=== PATIENT | male | born 1960 | race African-American/Black ===

== ENCOUNTER 2018-04-28 15:44 | Emergency (ER) | payer OTHER ==
[~2018-04-28] VITALS: Ht 177.8 cm; Wt 104.3 kg
[~2018-04-28 15:44] MED LIST: ASPIRIN EC81 M1 PO; GLUCOPHAGE1000 MG PO; GLUCOTROL10 MG PO; MAGOX 400400 MG PO; NORVASC10 MG PO; NOVOLOG100 UNIT/1; PRAVASTATIN SOD20 MG PO; PRILOSEC 20 MG20 MG PO
[2018-04-28] MEDS ORDERED: NAPROSYN500 MG PO (16:50)
[2018-04-28] MEDS ORDERED: TRAMADOL 50 MG50 MG PO (16:50)
[2018-04-28 17:30] VITALS: BP 126/82
[2018-05-05] MEDS ORDERED: ZOLOFT100 MG PO (14:22)
[2018-05-05] MEDS ORDERED: PRAVACHOL20 MG PO (14:22)
[2018-05-05] MEDS ORDERED: PIOGLITAZONE30 MG PO (14:23)
[2018-05-05] MEDS ORDERED: MAGNESIUM OXID500 M1 PO (14:25)
[2018-05-05] MEDS ORDERED: HUMALOG100 UNIT/1 SUBQ (14:26)
[2018-05-05] MEDS ORDERED: LEVEMIR SUBQ (14:27)
[2018-05-05] MEDS ORDERED: GLIPIZIDE 10 MG10 MG PO (14:29)
[2018-05-05] MEDS ORDERED: UNICOMPLEX M TA1 TA1 PO (14:29)
[2018-05-05] MEDS ORDERED: PEPCID20 MG PO (14:31)
[2018-05-05] MEDS ORDERED: CLONAZEPAM 0.50.5 M1 PO (14:31)
== END 2018-04-28 17:30 | disposition home or self-care (01) ==
LOC: ER 15:44
DX: S76.112A Strain of left quadriceps muscle, fascia and tendon, initial encounter (principal); S80.12XA Contusion of left lower leg, initial encounter; Z98.890 Other specified postprocedural states; I10 Essential (primary) hypertension; E78.00 Pure hypercholesterolemia, unspecified; F32.9 Major depressive disorder, single episode, unspecified; F41.9 Anxiety disorder, unspecified; W00.1XXA Fall from stairs and steps due to ice and snow, initial encounter; Y93.89 Activity, other specified; Y92.89 Other specified places as the place of occurrence of the external cause; Y99.8 Other external cause status

== ENCOUNTER 2018-05-06 05:26 | Day surgery (SDC) | payer OTHER ==
[~2018-05-06] VITALS: Ht 175.3 cm; Wt 104.6 kg
--- NOTE | ~2018-05-06 | O ---
[facility] [place] [address] OPERATIVE REPORT Name: KYLER DUNAWAY Room #: 150-3 [facility]..#: [id number] Admission: 05/06/18 Attend Phys: Devonte Craven MD Discharge: Date of : 64 Report #: [id number] THIS REPORT FOR: //name// CC: Devonte Perez DATE OF SERVICE: 05/06/2018 SERVICE: Orthopedics. FACILITY: [facility]. SURGEON: Devonte Craven MD PAY STATION DEPARTMENT MANAGER: Hillary Vera NP INDICATION FOR PAY STATION DEPARTMENT MANAGER: Is aiding in reduction and repair. PREOPERATIVE DIAGNOSIS: Acute left quadriceps tendon rupture. POSTOPERATIVE DIAGNOSIS: Acute left quadriceps tendon rupture. PROCEDURE: Left open quadriceps tendon repair. COMPLICATIONS: None. DRAINS: None. SPECIMENS: None. ANESTHESIA: General. FINDINGS: 1. Successful repair with [place] suture tape x 2. 2. [place] flexion test secured to 70 degrees of flexion. Postoperative plan will be to begin range of motion at 3 weeks, 0-60 degrees until 6 weeks and then advance beyond 60 at that point. HISTORY: The patient is a gentleman who sustained an injury to his left knee. He presented to the clinic with evidence of an acute quadriceps tendon rupture. He was indicated for surgical treatment as he was unable to perform a straight leg raise. Risks, benefits, alternatives, and indication of surgery were discussed with him in detail. Risks include but not limited to pain, bleeding, infection, injury to nerves or blood vessels, persistent pain despite surgical intervention, failure of repair, progression of any preexisting chondral injury, stiffness, need for further surgery as well as complications related to [facility] [address] [place] [address] OPERATIVE REPORT Name: KYLER DUNAWAY Room #: 150-3 [facility] M.R.#: [id number] Admission: 05/06/18 Attend Phys: Devonte Craven MD Discharge: Date of : 64 Report #: [id number] anesthesia such as stroke, heart attack, pulmonary complications, thromboembolic disease and . Despite these risks, he wished to proceed. PROCEDURE IN DETAIL: After left lower extremity was correctly identified in preoperative holding area as the operative extremity, the patient was taken to the operating room where general anesthesia with LMA was induced without complication. He was padded appropriately. Prophylactic antibiotics were administered at appropriate time. Tourniquet was applied to the left leg. Left lower extremity was then prepped and draped in standard sterile fashion. Time-out procedure was performed. A standard anterior incision was made over the patella and the quadriceps tendon. Dissection was taken down to the quad tendon, which was torn and frayed. The degenerative tissue was debrided with a rongeur and sharply. After the debridement was completed, the superior pole of the patella was exposed. The tendon stump and residual synovium was resected. A fresh trough was made in the superior pole of bone, exposing the cancellous bone for secure repair. [facility] labral tape was then used to perform two [place] sutures with a total of 4 limbs. Three 2 mm drill holes were then drilled in the patella and the suture limbs were passed through the drill holes. The quadriceps tendon was then held and reduced securely to the patella and then these labral tape limbs were tied securely past the inferior pole of the patella over the patellar tendon. The repair was quite secure at this point with flexion and then the repair was oversewn with the residual dorsal soft tissue on the patella with 0 Vicryl suture and Jami type stitch, and then the medial and lateral retinaculum was repaired with 0 Vicryl suture in [id number] fashion. After the repair was completed, gravity flexion test was performed. The repair was secure and held to 70 degrees of flexion before it became taut and would not bend further against gravity. We will therefore set our range of motion at 60 degrees. Note that the knee joint was copiously irrigated and the knee was inspected prior to repair and there were no significant abnormalities found within the joint. The skin was then closed with 2-0 Vicryl followed by running subcuticular 3-0 Monocryl. Dermabond and an Aquacel dressing were applied to the wound. A compression stocking and PolarCare device were then applied as well. The patient was awakened from anesthesia and taken to recovery room in stable condition. There were no complications and all counts were recorded as correct. By: [id number] Devonte Craven MD /nt
[~2018-05-06 05:26] MED LIST changes: +CLONAZEPAM 0.50.5 M1 PO; +GLIPIZIDE 10 MG10 MG PO; +HUMALOG100 UNIT/1 SUBQ; +LEVEMIR SUBQ; +MAGNESIUM OXID500 M1 PO; +NAPROSYN500 MG PO; +PEPCID20 MG PO; +PIOGLITAZONE30 MG PO; +PRAVACHOL20 MG PO; +TRAMADOL 50 MG50 MG PO; +UNICOMPLEX M TA1 TA1 PO; +ZOLOFT100 MG PO
[2018-05-06 13:27] VITALS: BP 174/90
--- NOTE | 2018-05-06 16:16 | EKG ---
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 <ELECTRONICALLY SIGNED> By: Mario Marcelo MD, [facility] 05/06/18 1616 1404 1404 Mario Marcelo MD, [facility] /EPI
[2018-05-06 17:25] VITALS: BP 174/90
== END 2018-05-06 17:55 | disposition home or self-care (01) ==
LOC: OR 05:26 → TBA 05:26 → OR 10:41
DX: S76.112A Strain of left quadriceps muscle, fascia and tendon, initial encounter (principal); I10 Essential (primary) hypertension; E11.9 Type 2 diabetes mellitus without complications; E78.00 Pure hypercholesterolemia, unspecified; K21.9 Gastro-esophageal reflux disease without esophagitis; F31.9 Bipolar disorder, unspecified; F17.210 Nicotine dependence, cigarettes, uncomplicated; Z79.4 Long term (current) use of insulin; Z98.890 Other specified postprocedural states; Z79.899 Other long term (current) drug therapy; W19.XXXA Unspecified fall, initial encounter; Y93.89 Activity, other specified; Y92.89 Other specified places as the place of occurrence of the external cause; Y99.8 Other external cause status
CPT/HCPCS: 50010; 50101; 50415; 50954; 51320; 52001; 52282; 53337; 54118; 56520; 56521; 56524; 56526; 56527; 56528; 62110; 62900; 70005

== ENCOUNTER 2018-08-13 19:16 | Emergency (ER) | payer OTHER ==
[~2018-08-13] VITALS: Ht 172.7 cm; Wt 104.3 kg
[2018-08-13] MEDS ORDERED: PREDNISONE 20 M20 M1 PO (20:28)
[2018-08-13 20:50] VITALS: BP 146/90
== END 2018-08-13 20:51 | disposition home or self-care (01) ==
LOC: ER 19:16
DX: R05 Cough (principal); I10 Essential (primary) hypertension; E78.00 Pure hypercholesterolemia, unspecified; K21.9 Gastro-esophageal reflux disease without esophagitis; E11.9 Type 2 diabetes mellitus without complications; F41.9 Anxiety disorder, unspecified; F31.9 Bipolar disorder, unspecified

== ENCOUNTER → 2018-10-27 | Outpatient (CLI) | payer OTHER ==
[~2018-10-27] MED LIST changes: +PREDNISONE 20 M20 M1 PO
== END ==
LOC: RAD 16:01
DX: J45.909 Unspecified asthma, uncomplicated (principal)

== ENCOUNTER 2018-11-06 16:05 | Inpatient (IN) | payer OTHER ==
[~2018-11-06] VITALS: Ht 170.2 cm; Wt 106.0 kg
--- NOTE | ~2018-11-06 | H ---
[facility] [place] [address] HISTORY AND PHYSICAL Name: KYLER DUNAWAY Room #: 349-I [facility] IN M.R.#: [id number] Admission: 11/06/18 ������������������ Attend Phys: Bucky Perez MD Discharge: 11/10/18 ������������������ Date of : 64 Report #: [id number] THIS REPORT FOR: //name// CC: Bucky Perez DATE OF SERVICE: 11/06/2018 CHIEF COMPLAINT: Persistent wheezing for several months, now with only 27% of lung function. HISTORY OF PRESENT ILLNESS: The patient has been wheezing for several months now, and has refused to take oral prednisone because it makes his blood sugars uncontrollably high. He has been using albuterol/ipratropium by nebulizer. ADDENDUM The patient brought all of his pills to the office after being discharged yesterday to help determine if one of his medications has had/has been the trigger for his bronchospasm and eosinophilia that started in July of this year. MEDICATIONS: The medications are listed 1 by 1 with identifying characteristics, 1. Sertraline 100 mg tablets, has been taking for several years, was 2 a day while grieving his son. 2. Pravastatin 20 mg 1 daily for several years. 3. Glipizide 10 mg 1 twice daily for several years. 4. Aspirin 81 mg 1 daily for several years. 5. Lisinopril 5 mg 1 daily for several years -- this was discontinued when admitted on 11/06/2018, so as not to be confused as part of his cause for cough. 6. Clonazepam 0.5 mg tablets twice daily as needed -- current bottle only has 6 tablets left, but he indicates there is another bottle at home, has been on this since his son summer, not likely candidate. 7. Famotidine 20 mg, in the prescription bottle that belongs to his significant other, the patient indicates he has been taking one a day for several years and that it is more effective than omeprazole for reflux. 8. Pioglitazone 30 mg 1 daily for years. 9. Magnesium 400 mg -- magnesium oxide, the patient states he has been taking one daily for several years and that it helps tremendously prevent leg cramps, but he does take various different brands of magnesium and so is a possible candidate, current bottle is almost empty. 10. Bystolic 5 mg, he was given samples in May and ran out in June, so not a likely candidate to cause his eosinophilia. 11. Jardiance 25 mg was started early this year and has been out since June, not a candidate for his current eosinophilia. 12. Tresiba -- indicated when he was in the hospital that he had not been taking [facility] [address] [place] [address] HISTORY AND PHYSICAL Name: KYLER DUNAWAY Room #: 349-I [facility] IN M.R.#: [id number] Admission: 11/06/18 ������������������ Attend Phys: Bucky Perez MD Discharge: 11/10/18 ������������������ Date of : 64 Report #: [id number] it since given Ozempic in 03/2018, but he had plenty at home. 13. Humalog - has been taking this intermittently for several years. 14. Budesonide by nebulizer started in August. 15. Ipratropium/albuterol by nebulizer started in August. 16. Fluticasone nose spray started this week. 17. Losartan 100 mg started 11/10/2018. 18. Farxiga samples were started, 10/30/2018, and not a cause of his eosinophilia. CONCLUSION: The only possible trigger for his eosinophilia and cough beginning in June related to medications might be his magnesium supplement in that he has used a different brand. All of his other medications have either been used continually for several years or were not in use/he was out of before he began his cough or were started in the last week after his cough was in full swing. ��������������������������������������������� ���������������������������������������� By: ��������������������������������������������� 1837 1845 Bucky Perez MD /nt
--- NOTE | ~2018-11-06 | H ---
[facility] [place] [address] HISTORY AND PHYSICAL Name: KYLER DUNAWAY Room #: 349-I [facility] M.R.#: [id number] Admission: 11/06/18 ������������������ Attend Phys: Bucky Perez MD Discharge: ������������������ Date of : 64 Report #: [id number] THIS REPORT FOR: //name// CC: Bucky Perez DATE OF SERVICE: 11/07/2018 CHIEF COMPLAINT: Persistent asthma, greensman concerned about an allergic response. HISTORY OF PRESENT ILLNESS: The patient has asthma-like symptoms much more so than usual for several months. He actually started using a Ventolin inhaler on a rare as needed basis several years ago, about the time he started his current job. At the same time, he began to cut back and eventually quit smoking. He was accustomed to having some chronic congestion, but it became worse in mid July when a course of antibiotics did not help and he went to the [facility] on 08/13/2018. He had mild expiratory wheezes throughout on his chest examination and was discharged with a prescription for prednisone 20 mg tablets 3 tablets daily to follow up in my office in 5-7 days. He is a diabetic and noticed that his blood sugars went elvira high, over 300 constantly, so he stopped using the prednisone. He is not sure if it helped him any. He continued to have chest congestion and he attributed to seasonal allergens and pollens and came to see me a month later on 09/30/2018. He had diffuse musical wheezes on examination. He insisted that he not take oral prednisone/steroids again, so he was started on ipratropium/albuterol treatments 4 times daily and budesonide 0.5 mg twice daily, also by nebulizer. He was given Cipro for an antibiotic, told to use guaifenesin, and to return soon. He was referred to the [facility]. He next came to the office a month later on 10/30/2018, noting that his cough was not any better, and that he had been taking 2 breathing treatments a day on average. He noticed that he had missed one day of work, but that he had been required 15 hours of overtime per week. 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 He had diffuse slight wheezing on exam again. Sammy man were given to add an anticholinergic component to his breathing treatments and once again he was strongly urged to see Dr. Crawford. Dr. Crawford called on 11/06/2018, saying that patients's spirometry was decreased to only 27% of predicted, he was wheezing, and Dr. Crawford had convinced the patient to be admitted to the hospital for intravenous corticosteroid therapy and close management of his blood sugars with sliding scale insulin. Dr. Crawford was concerned that there is an allergic component involved and was concerned that his spirometry was only 27% of what it should be and that his bronchospasm should be reversed. [address] [address] HISTORY AND PHYSICAL Name: KYLER DUNAWAY Room #: 349-I [facility] IN M.R.#: [id number] Admission: 11/06/18 ������������������ Attend Phys: Bucky Perez MD Discharge: ������������������ Date of : 64 Report #: [id number] PAST MEDICAL HISTORY: Past medical history was obtained by the patient and his significant other/girlfriend. He has smoked for a long time, but over the last 4 years, has steadily stopped. The patient insists he stopped smoking a year and a half ago, and resumed briefly when his son was killed in an automobile accident in 10/2017 and since then, he has only smoked 3 cigarettes. He has been using her Ventolin inhaler for the last 4 years from time to time. Both agreed that beginning in about late July, he has had much more trouble breathing than usual and that he has not been smoking or if so very little. She attributes his breathing problems to seasonal allergies and notes that he also has nasal congestion when the trouble breathing. 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 They both note that he started needing to use Ventolin inhaler when he began this job about 4 years ago. He has type 2 diabetes that has required insulin to control and he has been noncompliant. For that reason, he was given Jardiance samples in June of this year, but indicates he may not have actually gotten the prescription filled after using up the samples. He was given Ozempic samples, but stopped using them relatively quickly because they caused erectile dysfunction. He was given Farxiga samples on 10/30/2018, but this was after his persistent bronchospasm began in mid July. He may have been on metoprolol and he was instructed to stop it in September. His other medications have been relatively unchanged, and will be reviewed below. Other past medical history is for hypertension, obesity, hyperlipidemia, elevated LPa, microhematuria. He ruptured his left quadriceps tendon and it was repaired on 05/06/2018 at [facility]. His PSA has been variable between 3.8, most recently 2.7. He has had problems with anger response at times and depression and has taken sertraline 100 mg for several years. When his son was tragically killed in an automobile accident in 10/2017, the dose was increased to 200 mg, and he has reduced it back down. He had throat surgery for reflux in 2009. He had pneumonia as a child. He had a rectal cyst removed in 2009. He has GERD. CURRENT MEDICATION LIST: (That he brought to the hospital as recorded by the nursing staff), 81 mg aspirin daily, Pulmicort, budesonide 0.5 mg by nebulizer twice daily, clonazepam 0.5 mg as needed up to twice a day, Farxiga 10 mg once daily, famotidine 20 mg daily, glipizide 10 mg twice daily, Humalog occasionally by sliding scale, ipratropium/albuterol 4 times daily by nebulizer, lisinopril 5 mg daily for blood pressure, magnesium oxide 500 mg daily, multiple vitamin with iron and minerals daily, pioglitazone 30 mg daily, sertraline 100 mg [address] [address] HISTORY AND PHYSICAL Name: KYLER DUNAWAY Room #: 349-I [facility] IN .R.#: [id number] Admission: 11/06/18 ������������������ Attend Phys: Bucky Perez MD Discharge: ������������������ Date of : 64 Report #: [id number] Medication history since 04/15/2018 of this year: Pioglitazone, (tramadol and naproxen for his quadriceps tear in April). Clonazepam, lisinopril 5 mg, pravastatin 20 mg, sertraline 100 mg were prescribed in April. Glipizide 10 mg twice daily, Humalog KwikPen were prescribed/renewed in May and June. Azithromycin prescribed on 08/06/2018. Prednisone 20 mg prescribed 3 tablets a day for 5 days on 08/13/2018 and renewed on 08/19/2018. Cipro prescribed for a 10-day course 09/30/2018. KNOWN MEDICATION ALLERGIES: None known previously, ED from amlodipine and Ozempic. SOCIAL HISTORY: He lives independently with his girlfriend/significant other. 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 REVIEW OF SYSTEMS: His depression and grief over his son's untimely "has lifted", and he has reduced the sertraline from 200 to 100mg a day, and is considering reducing it further. Otherwise ROS is negative except for persistent shortness of breath on exertion, wheezing, cough, and mucus production. PHYSICAL EXAMINATION: GENERAL: Shows a 58-year-old -[place] male who in minimal respiratory distress in his hospital room. HEENT: Unremarkable except the oral mucosa is mildly dry. LUNGS: There are diffuse wheezes and a few rhonchi throughout all lung sheriff. He is not dyspneic at rest. CARDIOVASCULAR: S1, S2 are normal. ABDOMEN: Obese, soft, nontender, without hepatosplenomegaly or masses. EXTREMITIES: Lower legs and feet are normal. There is no edema and sensation to light touch is grossly intact. LABORATORY DATA: Important to note is that he has a low grade of eosinophilia with a white count of 5.4 thousand, 14% eosinophils and a total eosinophil count of 700. CBC in my office on 09/30/2018 also showed a total of white count of 6700 with a total eosinophil count that was mildly elevated at 690. His eosinophil count from 05/19/2018 was much lower at 284 with only 3% eosinophils and a total white count of 7900. Although the eosinophil count currently is not necessarily impressive, the percent eosinophils of 14 and of 10 last month in my office are all significantly greater than his baseline of 3.6% in the winter and eosinophils were only 3.7% in 06/2017. Other important laboratory data: Hemoglobin A1c of 9.0, which compares to his usual hemoglobin A1c between 8 and 9. His magnesium is 2.5, but he takes magnesium pills. Chest x-ray from last week at [facility] was negative. [facility] [address] [place] [address] HISTORY AND PHYSICAL Name: KYLER DUNAWAY Room #: 349-I [facility] IN ..#: [id number] Admission: 11/06/18 ������������������ Attend Phys: Bucky Perez MD Discharge: ������������������ Date of : 64 Report #: [id number] ASSESSMENT: 1. Persistent bronchospasm since late 07/2018. 2. Eosinophilia that is new. 3. He does not seem to have a new medication that would explain his current eosinophilia. However, with his noncompliance it is a question 4. By history, he has seasonal allergies and this is the season for seasonal allergies. 5. He has chronic lung irritation by history from his place of employment beginning 4 years ago, but his current exposures at work have not changed. 6. Hypertension. 7. Hyperlipidemia. 8. Elevated LPa. 9. Other medical problems as listed above. PLAN: The following medications have been chronic for him according to prescription records; [id number] omeprazole, lisinopril, clonazepam, pravastatin, sertraline, glipizide, Humalog KwikPen, pioglitazone. He has not had prescriptions for Levemir for some time. Amlodipine was discontinued in late 2017. Bystolic samples have been used in the past, it has not been prescribed recently and being an expensive brand medication he has not had prescriptions filled. This will by stock will be used initially to help with his blood pressure in the hospital. Because of issues regarding cough and MERCED inhibitors, lisinopril will not be used. He reported erectile dysfunction from amlodipine, so it was discontinued in July, and will not be restarted. Losartan and doxazosin can be used if needed for blood pressure control. The patient has decided to wean off of the sertraline, so it is being resumed at a lower dose of 50 mg a day. Dietitian consult has been requested. ��������������������������������������������� ���������������������������������������� By: ��������������������������������������������� [id number] Bucky Perez MD /nt
[2018-11-06 16:33] VITALS: BP 171/92
[2018-11-06 17:15] LABS: HEMATOCRIT 42.3 % (42.0-52.0); MCH 26.2 pg (26.0-34.0); MCV 79.3 fL (80.0-100.0); PLATELET COUNT 176 thou/uL (150-400); RBC 5.33 mil/uL (4.50-6.00); RDW 15.3 % (10.5-14.5); WBC 5.4 thou/uL (4.0-11.0)
[2018-11-06 17:30] LABS: ALBUMIN 3.6 g/dL (3.4-5.0); CALCIUM 8.9 mg/dL (8.5-10.1); CREATININE 0.9 mg/dL (0.7-1.3); TOTAL BILIRUBIN 0.3 mg/dL (<0.1-1.0); TOTAL PROTEIN 7.6 g/dL (6.4-8.2)
--- NOTE | 2018-11-06 18:12 | NUR ---
PT admitted from ED for UTI and sepsi, PT opens his eyes by voice, but pt does not talk and does not follow commands, RN has called DR and get new order , pt stars IV DS NS @100ML/HR and IV ABT, PT is on o2 1L/MIN/NC , PT'S vs and o2sat are stable at this time, pt has urine 650ml by this time. pt has slowly to meet care plan goals .
[2018-11-06 18:13] LABS: ABSOLUTE NEUTROPHILS 2.6 thou/uL (1.4-8.2)
[2018-11-06 19:14] VITALS: BP 144/88
--- NOTE | 2018-11-06 19:44 | NUR ---
PT ARRIVED TO FLOOR DIRECT ADMIT FROM DR LUNA OFFICE. ADMISSION HISTORY, ASSESSMENT AND CARE PLAN COMPLETED. DR LUNA AND TONY ROUNDED ON PT.MED LIST TO BE BROUGHT FORM HOME BY PT SO.PIV PLACED BY IV TEAM.REPORT OFF TO KIMI ALEXANDRA.
[2018-11-06] MEDS ORDERED: LISINOPRIL5 MG PO (20:02)
[2018-11-06] MEDS ORDERED: ASPIRIN EC81 M1 PO (20:03)
[2018-11-06] MEDS ORDERED: PULMICORT0.5 MG/22 INH (20:04)
[2018-11-06] MEDS ORDERED: FARXIGA10 MG PO (20:04)
[2018-11-06] MEDS ORDERED: IPRAT-ALBUT 0.5-3 ML INH (20:06)
[2018-11-07 00:34] VITALS: BP 155/80
--- NOTE | 2018-11-07 00:46 | NUR ---
RF INTERFERENCE SHEET EXPLAINED AND PATIENT SIGNED STATING HE UNDERSTOOD. PLACED ON CHART.
[2018-11-07 00:57] LABS: URINE BILIRUBIN NEGATIVE (Negative); URINE BLOOD NEGATIVE (Negative); URINE CLARITY CLEAR; URINE COLOR YELLOW; URINE GLUCOSE-RANDOM* 3+ (Negative); URINE KETONES NEGATIVE (Negative); URINE LEUKOCYTES-REFLEX NEGATIVE (Negative); URINE NITRITE-REFLEX NEGATIVE (Negative); URINE PROTEIN (DIPSTICK) NEGATIVE (Negative); URINE UROBILINOGEN 0.2 E.U./dl (0.2-1.0)
[2018-11-07 04:44] VITALS: BP 151/69
--- NOTE | 2018-11-07 05:00 | NUR ---
SLEPT MOST OF SHIFT. UP AD GINNA IN ROOM WITH STEADY GAIT. DENIES COMPLAINTS OF PAIN. REMAINS WITH SHORTNESS OF AIR. WORKING ON GOALS AND PLAN OF CARE FOR NOC. NOT PROGRESSING TOWARDS DISCHARGE GOALS AT THIS TIME. CONTINUE TO ASSES CLOSELY.
[2018-11-07 07:01] VITALS: BP 150/101
--- NOTE | 2018-11-07 09:16 | 2DMMODE ---
[facility] [place] [address] 2 D/M-MODE ECHOCARDIOGRAM Name: EMELYNKYLER Room #: 349-I ADM IN .R.#: [id number] ������������� Admission: 11/06/18 ������������� Attend Phys: Bucky Perez, Discharge: ��� ������������� ��� Date of : 64 Date of Service: 11/07/18 0915 �� Report #: [id number] �������� ��������������������������������������������[id number] THIS REPORT FOR: //name// APPROVED REPORT Study performed: 11/07/2018 08:18:36 EXAM: Comprehensive 2D, Doppler, and color-flow Echocardiogram Patient Location: Echo lab Room #: 349 Status: routine BSA: 2.16 HR: 105 bpm BP: 151/69 mmHg Rhythm: NSR/tachy Indications HTN, cough, congestion, short of breath. Hx: HTN, HLP, DM. 2D Dimensions RVDd: 30.47 mm IVSd: 15.71 (7-11mm) LVDd: 57.23 mm PWd: 10.25 (7-11mm) Ascending Ao: 36.64 (22-36mm) LVDs: 48.87 (25-40mm) Aortic Root: 35.99 mm Volumes Left Atrial Volume (Systole) Single Plane 4CH: 46.78 mL Single Plane 2CH: 75.39 mL LA ESV Index: 30.00 mL/m2 Aortic Valve AoV Peak Anthony.: 1.65 m/s AO Peak Gr.: 10.84 mmHg LVOT Max P.13 mmHg LVOT Max V: 1.02 m/s Mitral Valve MV Decel. Time: 148.42 ms MV E Max Anthony.: 1.14 m/s IVRT: 69.20 ms Pulmonary Valve PV Peak Anthony.: 1.22 m/s PV Peak Gr.: 5.93 mmHg [facility] [address] [place] [address] 2 D/M-MODE ECHOCARDIOGRAM Name: KYLER DUNAWAY Room #: 349-I [facility] IN ..#: [id number] ������������� Admission: 11/06/18 ������������� Attend Phys: Bucky Perez, Discharge: ��� ������������� ��� Date of : 64 Date of Service: 11/07/18 0915 �� Report #: [id number] �������� ��������������������������������������������[id number] Pulmonary Vein P Vein S: 0.71 m/s P Vein A: 0.45 m/s P Vein D: 0.58 m/s P Vein A Dur.: 124.6 msec P Vein S/D Ratio: 1.22 Tricuspid Valve TR Peak Anthony.: 2.52 m/s RAP Estimate: 5.00 mmHg TR Peak Gr.: 25.47 mmHg PA Pressure: 30.00 mmHg Left Ventricle The left ventricle is normal size. Regional wall motion abnormalities are noted. There is hypokinesis of the mid to basal inferior wall. Left ventricular systolic function is mildly decreased. LVEF is 45-50%. This study is not technically sufficient to allow evaluation of the LV diastolic function due to tachycardia. Right Ventricle The right ventricle is normal size. The right ventricular systolic function is normal. Atria The left atrium size is normal. The right atrium size is normal. Aortic Valve The aortic valve is normal in structure. No aortic regurgitation is present. There is no aortic valvular stenosis. Mitral Valve The mitral valve is normal in structure. Trace to mild mitral regurgitation. Tricuspid Valve The tricuspid valve is normal in structure. Trace tricuspid regurgitation. Estimated PAP is 30-35mmHg. Pulmonic Valve The pulmonary valve is normal in structure. There is no pulmonic valvular regurgitation. Great Vessels The aortic root is normal in size. The ascending aorta is normal in size. IVC is normal in size and collapses >50% with inspiration. [facility] [address] [place] [address] 2 D/M-MODE ECHOCARDIOGRAM Name: KYLER DUNAWAY Room #: 349-I ADM IN M.R.#: [id number] ������������� Admission: 11/06/18 ������������� Attend Phys: Bucky Perez, Discharge: ��� ������������� ��� Date of : 64 Date of Service: 11/07/18 0915 �� Report #: [id number] �������� ��������������������������������������������[id number] Pericardium There is no pericardial effusion. <Conclusion> The left ventricle is normal size. Left ventricular systolic function is mildly decreased. Regional wall motion abnormalities are noted. The right ventricle is normal size. The left atrium size is normal. The right atrium size is normal. The aortic valve is normal in structure. Trace to mild mitral regurgitation. Trace tricuspid regurgitation. Estimated PAP is 30-35mmHg. ��������������������������������������������� <ELECTRONICALLY SIGNED> ���������������������������������������� By: Umesh Ty MD ��������������������������������������������� 11/07/18914 4 4 Umesh Ty MD /INF
--- NOTE | 2018-11-07 12:12 | NUR ---
ASSESSMENT: cm reviewed chart and met with patient at the bedside. PT IS ALERT AND ORIENTED X4. PT REPORTS HE LIVES AT HOME WITH HIS GIRLFRIEND. PT REPORTS HE IS FULLY INDEPENDENT WITH ADLS AND AMBULATION. PT REPORTS HE HAS NO DME OR THE NEED FOR IT. CM DISCUSSED ROLE. PT STATES HE WILL HAVE NO NEEDS AT D/C. PT IS POSSIBLE DISCHARGE OVER THE WEEKEND.
[2018-11-07 12:20] VITALS: BP 172/111
--- NOTE | 2018-11-07 14:14 | NUR ---
Nutrition: pt admitted with hypersensitivity reaction, asthma, COPD. Consult received for poor diabetic control. Pt with hx of DM x 20 years. A1C 9.0. Pt attributes this to need for prednisone at home. (currently on solumedrol). States typically his BG is much better controlled. Refused offer of diet review and voiced understanding. Has been trying to make healthier choices recently. Good appetite and able to order meals. Stable wts reported however BMI of 36 indicating obesity class 2. Offered simple suggestions for weight loss. Encouraged pt to contact RD if dietary questions arise. Low risk.
[2018-11-07 15:44] VITALS: BP 147/111
[2018-11-07 19:23] VITALS: BP 136/81
--- NOTE | 2018-11-07 19:30 | NUR ---
ASSUMED PATIENT CARE AT 0700. A/O X4. UP AD GINNA. COUGHT. VSS. PROGRESSING TOWARDS POC GOALS.
[2018-11-08 03:45] VITALS: BP 130/77
--- NOTE | 2018-11-08 05:46 | NUR ---
resting quietly tonight. denies pain. his stays at the bedside. no d/c concerns voiced.
[2018-11-08 08:15] VITALS: BP 128/72
--- NOTE | 2018-11-08 18:04 | NUR ---
ASSUMED PATIENT CARE AT 0700. A/O X4. PLEASANT. NO DISDRESS NOTED. PROGRESSING TOWARDS POC GOALS.
[2018-11-08 19:15] VITALS: BP 124/70
--- NOTE | 2018-11-09 02:35 | NUR ---
resting quietly tonight. continues to be comfortable with his breathing. He asks questions regarding how he can improve his health. careplan reviewed. denies pain. the blood glucose insulin scale increased to the high level based on his blood glucose levels. no discharge concerns voiced.
[2018-11-09 05:45] VITALS: BP 142/90
[2018-11-09 07:26] VITALS: BP 126/85
[2018-11-09 15:41] VITALS: BP 137/79
--- NOTE | 2018-11-09 18:37 | NUR ---
NO CHANGE. NO DISDRESS NOTED. PROGRESSING TOWARDS POC GOALS.
[2018-11-09 19:30] VITALS: BP 157/87
[2018-11-10 04:03] VITALS: BP 138/88
[2018-11-10 06:40] VITALS: BP 148/99
[2018-11-10 07:27] VITALS: BP 156/88
--- NOTE | 2018-11-10 08:17 | NUR ---
PT MAKING PROGRESS TOWARDS GOALS. NO SOA REPORTED OVERNIGHT, ON ROOM. SEE CHARTING.
--- NOTE | 2018-11-10 11:48 | NUR ---
on-going assessment: cm reviewed chart. pt is slowly progressing towards discharge goals. LIKELY DISCHARGE HOME SOON AND WILL HAVE NO NEEDS.
[2018-11-10] MEDS ORDERED: BYSTOLIC 5 MG5 M1 PO (13:22)
[2018-11-10] MEDS ORDERED: COZAAR100 MG PO (13:22)
[2018-11-10] MEDS ORDERED: PREDNISONE 5 MG5 M1 PO (13:32)
[2018-11-10] MEDS ORDERED: TRESIBA FL200 UNIT/1 SUBQ (13:35)
[2018-11-10 13:45] VITALS: BP 156/88
--- NOTE | 2018-11-10 14:13 | NUR ---
PROGRESSNG TOWARDS POC GOALS. DC TO HOME NOW.
== END 2018-11-10 14:14 | disposition home or self-care (01) | DRG 203 ==
LOC: 3W 16:05
PROVIDERS: ADMIT Internal Medicine
DX: J45.909 Unspecified asthma, uncomplicated (principal); J44.9 Chronic obstructive pulmonary disease, unspecified; I10 Essential (primary) hypertension; E11.9 Type 2 diabetes mellitus without complications; D72.1 Eosinophilia; E78.5 Hyperlipidemia, unspecified; E66.9 Obesity, unspecified; Z68.36 Body mass index [BMI] 36.0-36.9, adult; Z87.891 Personal history of nicotine dependence; Z91.19 Patient's noncompliance with other medical treatment and regimen; Z79.4 Long term (current) use of insulin; Z79.899 Other long term (current) drug therapy; Z88.8 Allergy status to other drugs, medicaments and biological substances
CPT/HCPCS: 10879

== ENCOUNTER 2019-12-21 05:37 | Emergency (ER) | payer OTHER ==
[~2019-12-21] VITALS: Ht 177.8 cm; Wt 108.9 kg
[~2019-12-21 05:37] MED LIST changes: +BYSTOLIC 5 MG5 M1 PO; +COZAAR100 MG PO; +FARXIGA10 MG PO; +IPRAT-ALBUT 0.5-3 ML INH; +LISINOPRIL5 MG PO; +PREDNISONE 5 MG5 M1 PO; +PULMICORT0.5 MG/22 INH; +TRESIBA FL200 UNIT/1 SUBQ
[2019-12-21] MEDS ORDERED: TRESIBA FL200 UNIT/1 SUBQ (05:56)
[2019-12-21 07:21] VITALS: BP 169/96
== END 2019-12-21 07:57 ==
LOC: ER 05:37
DX: S01.01XA Laceration without foreign body of scalp, initial encounter (principal); I10 Essential (primary) hypertension; E78.00 Pure hypercholesterolemia, unspecified; K21.9 Gastro-esophageal reflux disease without esophagitis; E11.9 Type 2 diabetes mellitus without complications; F32.9 Major depressive disorder, single episode, unspecified; F41.9 Anxiety disorder, unspecified; J45.909 Unspecified asthma, uncomplicated; Z98.890 Other specified postprocedural states; Z79.4 Long term (current) use of insulin; Z79.82 Long term (current) use of aspirin; Z79.899 Other long term (current) drug therapy; W06.XXXA Fall from bed, initial encounter; Y93.84 Activity, sleeping; Y92.098 Other place in other non-institutional residence as the place of occurrence of the external cause; Y99.8 Other external cause status

== ENCOUNTER 2021-02-05 20:12 | Inpatient (IN) | payer OTHER ==
[~2021-02-05] VITALS: Ht 175.3 cm; Wt 152.8 kg
[2021-02-05 20:53] VITALS: BP 145/89
[2021-02-05 22:06] LABS: ABSOLUTE NEUTROPHILS 7.2 thou/uL (1.4-8.2); BASOPHILS 0.4 % (0.0-2.0); EOSINOPHILS 1.6 % (0.0-3.0); HEMATOCRIT 42.3 % (42.0-52.0); HEMOGLOBIN 13.5 gm/dL (14.0-18.0); LYMPHOCYTES 12.1 % (24.0-44.0); MCHC 31.9 g/dL (28.0-37.0); MCV 81.4 fL (80.0-100.0); MONOCYTES 3.9 % (1.0-8.0); PLATELET COUNT 210 thou/uL (150-400); RDW 15.1 % (10.5-14.5); WBC 8.8 thou/uL (4.0-11.0)
[2021-02-05 22:09] LABS: CALCIUM 8.5 mg/dL (8.5-10.1); POTASSIUM 4.7 mmol/L (3.5-5.1)
[2021-02-05 22:19] LABS: ALBUMIN 3.4 g/dL (3.4-5.0); TOTAL BILIRUBIN 0.3 mg/dL (0.2-1.0); TOTAL PROTEIN 6.6 g/dL (6.4-8.2)
[2021-02-06] VITALS (8 sets, daily range): BP systolic 134–168; BP diastolic 69–108
--- NOTE | 2021-02-06 04:17 | NUR ---
PATIENT IS A NEW ADMIT TO THE UNIT THIS SHIFT. HE ARRIVED VIA WHEELCHAIR FROM THE ER AND WAS ABLE TO AMBULATE TO THE BED WITHOUT INCIDENT. PATIENT IS FULLY ALERT AND ORIENTED AND ABLE TO CALL APPROPRIATELY FOR NEEDS AND PARTICIPATE FULLY IN ADMISSION. PATIENT HAS NO COMPLAINTS OF PAIN/PRESSURE. NPO PER PROVIDERS ORDER. PATIENT IS STABLE AND BALANCED ON FEET AND IS UP AD GINNA. MEDICATIONS TAKEN TO PHARMACY PER HOSPITAL PROTOCOL. NURSE TO COMPLETE ADMISSION AND FULLY INITIATE PLAN OF CARE.
[2021-02-06 04:33] LABS: CHOLESTEROL 254 mg/dL (<200); HDL CHOLESTEROL 45 mg/dL (>40); LDL CHOLESTEROL 187 mg/dL (<100); TC:HDL 5.6 Ratio (Not establshd); TRIGLYCERIDE 113 mg/dL (<150); VLDL 23 mg/dL (<40)
[2021-02-06 04:35] LABS: SERUM ASSESSMENT Clear
[2021-02-06 04:41] LABS: CALCIUM 8.7 mg/dL (8.5-10.1); POTASSIUM 4.3 mmol/L (3.5-5.1)
--- NOTE | 2021-02-06 12:26 | 2DMMODE ---
[facility] [place] [address] [place] [address] 2 D/M-MODE ECHOCARDIOGRAM Name: KYLER DUNAWAY Room #: 201-P ADM IN M.R.#: [id number] Admission: 02/05/21 Attend Phys: Ale Gutiérrez MD Discharge: Date of : 64 Report #: [id number] THIS REPORT FOR: cc: Bucky Perez MD, Stanley P. MD Lundgren, Craig H. MD [facility] ~ APPROVED REPORT Study performed: 02/06/2021 10:02:47 EXAM: Comprehensive 2D, Doppler, and color-flow Echocardiogram Patient Location: Bedside Room #: 201 Status: routine BSA: 2.23 HR: 80 bpm BP: 161/95 mmHg Rhythm: NSR Other Information Study Quality: Adequate Indications Diabetes Dyspnea Elevated Troponin Hypertension/HDD 2D Dimensions IVSd: 13.98 (7-11mm) LVOT Diam: 21.55 (18-24mm) LVDd: 64.22 mm PWd: 13.62 (7-11mm) Ascending Ao: 36.40 (22-36mm) LVDs: 56.66 (25-40mm) Left Atrium: 36.18 (27-40mm) Aortic Root: 33.12 mm IVC: 16.00 mm Volumes Left Atrial Volume (Systole) Single Plane 4CH: 80.39 mL Single Plane 2CH: 62.30 mL LA ESV Index: 35.00 mL/m2 Aortic Valve AoV Peak Anthony.: 1.29 m/s AO Peak Gr.: 6.68 mmHg LVOT Max P.64 mmHg [facility] [address] [place] [address] 2 D/M-MODE ECHOCARDIOGRAM Name: KYLER DUNAWAY Room #: 201-P [facility] IN M.R.#: [id number] Admission: 02/05/21 Attend Phys: Ale Gutiérrez MD Discharge: Date of : 64 Report #: [id number] LVOT Max V: 0.81 m/s VARSHA Vmax: 2.29 cm2 Mitral Valve E/A Ratio: 1.3 MV Decel. Time: 134.94 ms MV E Max Anthony.: 1.08 m/s MV A Anthony.: 0.83 m/s MV PHT: 39.13 ms IVRT: 101.50 ms Pulmonary Valve PV Peak Anthony.: 0.77 m/s PV Peak Gr.: 2.36 mmHg Pulmonary Vein P Vein S: 0.43 m/s P Vein A: 0.22 m/s P Vein D: 0.28 m/s P Vein A Dur.: 96.9 msec P Vein S/D Ratio: 1.54 Tricuspid Valve TR Peak Anthony.: 2.84 m/s TR Peak Gr.: 32.36 mmHg PA Pressure: 37.00 mmHg Left Ventricle Left ventricle is dilated. Moderate concentric left ventricular hypertrophy. Left ventricular ejection fraction is moderate to moderately severely decreased. LVEF is 35-40%. Inferior and inferolateral hypokinesis Moderate diastolic dysfunction Right Ventricle The right ventricle is normal size. The right ventricular systolic function is normal. Atria Left atrium is dilated. Right atrium is dilated. Aortic Valve The aortic valve is trileaflet, mildly sclerotic. No aortic regurgitation is present. There is no aortic valvular stenosis. Mitral Valve The mitral valve is normal in structure. Trace mitral regurgitation. No evidence of mitral valve stenosis. [facility] [address] [place] [address] 2 D/M-MODE ECHOCARDIOGRAM Name: KYLER DUNAWAY Room #: 201-P ADM IN M.R.#: [id number] Admission: 02/05/21 Attend Phys: Ale Gutiérrez MD Discharge: Date of : 64 Report #: [id number] Tricuspid Valve The tricuspid valve is normal in structure. There is trace tricuspid regurgitation. Estimated PAP 37 mmHg. There is mild pulmonary hypertension. Pulmonic Valve The pulmonary valve is normal in structure. There is no pulmonic valvular regurgitation. Great Vessels The aortic root is normal in size. IVC is normal in size and collapses >50% with inspiration. Pericardium There is no pericardial effusion. <Conclusion> Left ventricular ejection fraction is moderate to moderately severely decreased. LVEF is 35-40%. Inferior and inferolateral hypokinesis Moderate diastolic dysfunction Both atria are dilated. The aortic valve is trileaflet, mildly sclerotic. No aortic regurgitation or stenosis. The mitral valve is normal in structure. Trace mitral regurgitation. There is trace tricuspid regurgitation. Estimated pulmonary artery pressure of 37 mmHg. There is no pericardial effusion. <ELECTRONICALLY SIGNED> By: Mario Marcelo MD, FACC 02/06/21 1226 1226 122 Mario Marcelo MD, FACC /INF
--- NOTE | 2021-02-06 17:18 | NUR ---
ASSESSMENT CHARTED - MEDS PER JUN -- NO CO'S OF PAIN OR NAUSEA. OXANA DIET AND FLUIDS. UP AD GINNA IN ROOM STEADY ON FEET - PT HAD NUC MED STRES TEST DONE THIS SHIFT - TO HAVE CATH IN THE AM ACCUCHECKS CHARTED - COVERED PER SSI PRN. PT STAED ON COREG AND LOSARTAN THIS SHIFT. ECHO COMPLETED - EF 35-40 % , NO CO'S AT THE PRESENT TIME.
--- NOTE | 2021-02-06 23:48 | NUR ---
ASSUMED PT CARE AT 1900.PT WAS OBSERVED LYING DOWN ON HIS BED WATCHING TV AT SHIFT CHANGE.FAMILY AT HIS BEDSIDE A HS.PT DENIED PAIN SO FAR.SOB NOTED WITH ACTIVITY.UP DLIB WITH A STEADY GAIT.PT WILL BE NPO AT UT FOR CARDIAC CATH IN THE MORNING.CALL LIGHT WITHIN REACH.
[2021-02-07] VITALS (17 sets, daily range): BP systolic 141–177; BP diastolic 79–101
[2021-02-07 01:06] LABS: GLYCOHEMOGLOBIN (HGB A1C) 8.4 % (4.8-5.6)
--- NOTE | 2021-02-07 07:14 | EKG ---
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1960 Requested By: Roman Alanis Order Number: [id number] MD: Arron Huddleston Measurements Intervals [place] Rate: 85 P: 68 AR: 158 QRS: -1 QRSD: 95 T: 113 QT: 373 QTc: 444 Interpretive Statements Incomplete analysis due to missing data in precordial lead(s) Sinus rhythm Biatrial enlargement Left ventricular hypertrophy Nonspecific T abnormalities, lateral leads Anterior ST elevation, probably due to LVH Missing lead(s): V6 Compared to ECG 05/06/2018 14:04:54 T-wave abnormality now present ST (T wave) deviation now present Early repolarization no longer present Myocardial infarct finding no longer present Electronically Signed On 02-07-2021 7:14:42 CDT by Arron Huddleston [email or web address] <ELECTRONICALLY SIGNED> By: Arron Huddleston MD, FACC 02/07/21713 53 53 Arron Huddleston MD, [facility] /EPI
--- NOTE | 2021-02-07 07:15 | EKG ---
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1960 Requested By: Roman Alanis Order Number: [id number] MD: Arron Huddleston Measurements Intervals [place] Rate: 85 P: 66 HI: 153 QRS: 0 QRSD: 101 T: -76 QT: 338 QTc: 402 Interpretive Statements Sinus rhythm LAE, consider biatrial enlargement Left ventricular hypertrophy Q lead III only Compared to ECG 02/05/2021 20:54:35 T-wave abnormality no longer present ST (T wave) deviation still present Electronically Signed On 02-07-2021 7:15:16 CDT by Arron Huddleston [email or web address] <ELECTRONICALLY SIGNED> By: Arron Huddleston MD, [facility] 02/07/21 0715 99 99 Arron Huddleston MD, [facility] /EPI
--- NOTE | 2021-02-07 11:43 | NUR ---
pt right groin site is still bleeding. pressure being applied at this time.
--- NOTE | 2021-02-07 13:41 | NUR ---
1300 PT BACK FROM [facility], ALERT AND ORIENTED X4. RIGHT GROIN SITE, CLEAN, DRY AND INTACT. SOFT, NO HEMATOMA OR SIGNS OF BLEEDDING. CATH SITE, CIRCULATION AND VITALS COMPLETED PER PROTOCOL. PT EDUCATED TO BEDREST FOR 6 HOURS, CALL FOR HELP IF NEEDED. AT BEDSIDE, WILL CONTINUE TO MONITOR
--- NOTE | 2021-02-07 22:19 | NUR ---
ASSESSED PT CATH SITE,DRIED DRAINAGE NOTED.NO HEMATOMA NOTED.PT EDUACTED TO TAKE THINGS EASY AND GET SOME REST. AT BEDSIDE AT START OF SHIFT.PT DENEID ANY CHEST PAIN SO FAR.PT EDUCATED TO CALL IF EXPERIENCING ANY PAIN.PT RESTING ON HIS BED AT THIS TIME.CALL LIGHT WITHIN REACH.
[2021-02-08] VITALS (7 sets, daily range): BP systolic 148–164; BP diastolic 75–93
[2021-02-08] MEDS ORDERED: BENICAR20 MG PO (10:41)
[2021-02-08] MEDS ORDERED: ASPIRIN325 PO (10:41)
[2021-02-08] MEDS ORDERED: LIPITOR40 MG PO (10:41)
[2021-02-08] MEDS ORDERED: COREG3.125 MG PO (10:41)
[2021-02-08] MEDS ORDERED: EFFIENT10 MG PO (10:41)
[2021-02-08] MEDS ORDERED: PREDNISONE 5 MG5 MG PO (11:38)
--- NOTE | 2021-02-08 14:50 | NUR ---
PATIENT STABLE AND READY FOR DISCHARGE. DISCHARGE INSTRUCTIONS AND SUMMARY REVIEWED WITH PATIENT. AWARE OF DISCHARGE RESTRICTIONS AND FOLLOW UP APPOINTMENT WITH CARDIOLOGY. REVIEWED MEDICATIONS, PATIENT DENIES QUESTIONS OR CONCERNS. SIGNIFICANT OTHER AT BEDSIDE, WAITING FOR DR. TRUONG TO ROUND AND THEN PATIENT IS READY TO DISCHARGE. IV DISCONTINUED/TELEMONITOR OFF.
--- NOTE | 2021-02-14 13:09 | CATHLAB ---
[facility] [place] [address] INVASIVE PROCEDURE REPORT Name: KYLER DUNAWAY Room #: 201-P DIS IN M.R.#: [id number] Admission: 02/05/21 Attend Phys: Ale Gutiérrez MD Discharge: 02/08/21 Date of : 64 Report #: [id number] THIS REPORT FOR: cc: Bucky Perez MD, Stanley P. MD Lammoglia, Francisco J. 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 A PINNACLE 6FR Sheath #[id number] sheath was inserted into the RFA^. Coronary angiography was performed using coronary diagnostic catheters. The right coronary system was accessed and visualized with a JR4 catheter. The left coronary system was accessed and visualized with a JL4 catheter. Intraoperative Conscious Sedation Sedation start time: 932 Case end Time: 1125 Versed 3 mg Fluoro Time: 20.40 minutes Dose: DAP 52866.60 cGycm2 4803 mGy Contrast Type and Amount: Omnipaque 260 ml [facility] [employer] [place] [address] INVASIVE PROCEDURE REPORT Name: EMELYNKYLER Room #: 201-P [facility]#: [id number] Admission: 02/05/21 Attend Phys: Ale Gutiérrez MD Discharge: 02/08/21 Date of : 64 Report #: [id number] Coronary Angiography The patient's coronary anatomy is right dominant. Diagnostic Cath Left Main Large-caliber vessel normal origin bifurcates left into descending left circumflex and is free of high-grade disease LAD Moderate caliber type II vessel which courses in the interventricular sulcus. After the first septal post anesthesia nurse there is a long segment of varying degree of stenosis ranging from 60-80+ percent. There is some haziness noted with some decreased flow. The vessel then reconstitutes itself continues to the anterior interventricular sulcus with only moderate irregularities noted as it reaches the apex and terminates as a bifurcating vessel Diagonal 1 Small caliber insignificant sized vessel with irregularities noted Diagonal 2 Small caliber insignificant sized vessel with irregularities noted Diagonal 3 Diminutive insignificant vessel Circumflex Small caliber nondominant vessel which is totally occluded proximally for the origin of any marginal branch Right Coronary Small caliber vessel of superior posterior origin unable to cannulate but appears to be proximally occluded with a right coronary cusp injection R PDA Small caliber string-like vessel filling retrograde from left to right collateral Hemodynamics The aortic pressure is 164/84 mmHg with a mean of 115 mmHg. The left ventricular pressure is 145/11 mmHg with a mean of mmHg. The left ventricular end diastolic pressure is 21 mmHg. PCI Technique The 4 Bahamian system was then exchanged with a 6 Bahamian system for intervention of the LAD. A standard left catheter was then engaged the left coronary ostium and a 014 wire was advanced distally. A 2.5 x 34 mm TRACEY stent was then advanced and positioned distal to the origin of the lesion and distal to the termination of the lesion. Subsequently inflated to 12 claudia and subsequent to 16 claudia for full dilatation. Patient developed typical chest discomfort with inflations. There is no loss of side branches embolization intraluminal thrombus noted. PCI Technique Lesion Percutaneous coronary intervention was performed on the proximal left anterior descending artery segment. A LAUNCHER 6FR JL4 #[id number] Guide [address] [address] INVASIVE PROCEDURE REPORT Name: EMELYNKYLER Room #: 201-P [facility] IN M.R.#: [id number] Admission: 02/05/21 Attend Phys: Ale Gutiérrez MD Discharge: 02/08/21 Date of : 64 Report #: [id number] Catheter was used to engage the LAD ostium. A Luge Wire .014 x 182CM #[id number] Interventional Guidewire was used to cross the lesion. STENT DEPLOYMENT A stent RESOLUTE JUAN RX 2.5 X 34 #[id number] was inserted and inflated up to 12.00atm for 13seconds. Additional Inflation: 15.00atm for 10seconds. Additional Inflation: 18.00atm for 10seconds. Conclusion 1. Coronary disease severe three-vessel consisting of totally occluded proximal RCA, proximal left circumflex, and high-grade proximal mid LAD 2. Abnormal hemodynamics elevated low ventricular diastolic pressures 3. Successful percutaneous revascularization with a 2.5 x 34 mm TRACEY stent taken to 18 mm English Recommendations Cardiac Risk Reduction Program Medical Therapy Dual antiplatelet therapy with aspirin and prasugrel initiated in the lab <ELECTRONICALLY SIGNED> By: Fraknlyn Portillo MD 02/14/21 1308 1308 1308 Franklyn Portillo MD /INF
== END 2021-02-08 14:56 | disposition home or self-care (01) | DRG 246 ==
LOC: ER 20:12 → 2N 22:48 → EROBS 22:48 → 2N 02-06 02:01
PROVIDERS: Emergency Medicine; Nurse Practitioner Family; ADMIT Internal Medicine; ATTEND Internal Medicine
DX: I25.110 Atherosclerotic heart disease of native coronary artery with unstable angina pectoris (principal); I50.21 Acute systolic (congestive) heart failure; Z68.42 Body mass index [BMI] 45.0-49.9, adult; R77.8 Other specified abnormalities of plasma proteins; I10 Essential (primary) hypertension; E78.5 Hyperlipidemia, unspecified; E11.9 Type 2 diabetes mellitus without complications; E78.00 Pure hypercholesterolemia, unspecified; K21.9 Gastro-esophageal reflux disease without esophagitis; F32.9 Major depressive disorder, single episode, unspecified; F41.9 Anxiety disorder, unspecified; J45.909 Unspecified asthma, uncomplicated; F12.90 Cannabis use, unspecified, uncomplicated; E66.01 Morbid (severe) obesity due to excess calories; I25.5 Ischemic cardiomyopathy; F43.10 Post-traumatic stress disorder, unspecified; G47.33 Obstructive sleep apnea (adult) (pediatric); Z20.822 Contact with and (suspected) exposure to COVID-19; Z79.82 Long term (current) use of aspirin; Z79.899 Other long term (current) drug therapy; Z83.3 Family history of diabetes mellitus; Z87.891 Personal history of nicotine dependence; Z82.49 Family history of ischemic heart disease and other diseases of the circulatory system; Z90.6 Acquired absence of other parts of urinary tract; Z87.01 Personal history of pneumonia (recurrent)
CPT/HCPCS: 10081